=== PATIENT | male | born 1945 | race Caucasian/White ===

== ENCOUNTER 2016-10-29 04:35 | Day surgery (SDC) | payer MEDICARE, OTHER ==
[2016-10-24 21:24] LABS: HEMATOCRIT 39.5 % (40.0-51.0); HEMOGLOBIN 13.2 g/dL (13.6-17.8)
[2016-10-24 21:33] LABS: BUN (BLOOD UREA NITROGEN) 38 MG/DL (6-23); CALCIUM, SERUM 9.5 MG/DL (8.5-10.4); CHLORIDE, SERUM 101 MMOL/L (96-112); CREATININE 1.95 MG/DL (0.70-1.30); GFR AFRICAN AMERICAN 39 ML/MIN (>=60); GFR NON AFRICAN AMERICAN 34 ML/MIN (>=60); GLUCOSE, SERUM 137 MG/DL (60-99); SODIUM, SERUM 141 MMOL/L (135-148)
[2016-10-24 21:35] LABS: CO2 (CARBON DIOXIDE) 27 MMOL/L (24-34)
--- NOTE | ~2016-10-29 | OP ---
Record Of [facility] [address] [place]. [address] NAME: WALDEMAR RODRIGUEZ : 45 STATUS : [facility]#: [id number] AGE: 71 ADM/REG DATE : 10/29/16 MR#: [id number] REPORT SERV DATE: 10/31/16 DICTATED BY: BARBRA BURGESS II DATE: 10/30/16 REPORT STATUS : Draft TRANSCRIBED BY: MODSathya DATE: 10/30/16 DATE OF PROCEDURE: 10/29/2016 PREOPERATIVE DIAGNOSES: 1. Radiculitis, lower extremities. 2. History of multiple thoracic and lumbar surgeries. POSTOPERATIVE DIAGNOSES: 1. Radiculitis, lower extremities. 2. History of multiple thoracic and lumbar surgeries. PROCEDURE: 1. Thoracic laminectomy for placement of spinal column stimulator paddle lead. 2. Placement of battery generator through a separate incision. SURGEON: Barbra Burgess M.D. FLUIDS: 1400 mL of LR. ESTIMATED BLOOD LOSS: 15 mL. DRAINS: None. COMPLICATIONS: None. ANTIBIOTIC: Preoperatively. PREOPERATIVE HISTORY: This is a very friendly 71-year-old gentleman who underwent a very successful trial stimulator with Dr. Wallace. He requested a permanent implant based upon his good results with the trial. We discussed the risks and benefits, and he wished to proceed. DESCRIPTION OF PROCEDURE: After informed consent was obtained, the patient was brought to the operating room at his request and general anesthesia achieved. He was placed in the prone position, and the back was prepped and draped in a sterile fashion. Mr. Rodriguez is a very large individual and positioning took a significant amount of time. Ultimately, we were able to make the incision in the thoracic spine and identified the fascia and subperiosteal exposure was completed at approximately T10-T11. The laminectomy was then performed with the high-speed tobi and the Kerrison rongeurs and the curettes. The lead was then placed over the dorsal columns and fluoroscopy confirmed acceptable placement of the T8 and T9 vertebral bodies, simulating the trial placement. At this point, a battery pocket was developed and the leads attached to the battery and the system was found to be functional. Irrigation was performed at both sites and hemostasis confirmed followed by standard closure. The patient was extubated and transferred to PACU Record Of Operation [facility] [address] [place]. [address] NAME: WALDEMAR RODRIGUEZ : 45 STATUS : [facility]#: [id number] AGE: 71 ADM/REG DATE : 10/29/16 MR#: [id number] REPORT SERV DATE: 10/31/16 DICTATED BY: BARBRA BURGESS II DATE: 10/30/16 REPORT STATUS : Draft TRANSCRIBED BY: MODL DATE: 10/30/16 in stable condition. DEV/MITESH Barbra Burgess II, M.D. / [id number] CC: London Aguiar II, M.D.
[~2016-10-29 04:35] MED LIST: AMB10 PO; ASAB PO; CARDU4 PO; CLARIT10 PO; COLCRYS0.6 MG PO; CORTISPORIN OPH; FISH OIL OTC PO; FLAG500TAB PO; FLONASE NAS; JANUMET1 TA1 PO; K-TABS10 MEQ PO; KLOR-CON M1010 MEQ PO; L40 PO; LANTUS SC; LANTUSCART SC; LEVOTHROID88 MCG PO; LOTENSIN HCT1 TA2 PO; METAMUCIL CAN7 OZ PO; MEVACOR PO; NEUR400 PO; NOVOPEN SC; NUCYNTA50 MG PO; PEP20 PO; PERCOCET 7.5/321 TAB PO; PRILO PO; RESTORIL30 MG PO; SYN88 PO; ULTRAM50 PO; VITAMIN D OTC PO; VITAMIN E OTC PO; Z300 PO; ZANAFLEX 4 MG TA4 MG PO
== END 2016-10-29 13:10 | disposition home or self-care (01) ==
LOC: SDC 04:35
PROVIDERS: Orthopaedic Surgery
PROC: 00HU0MZ Insertion of Neurostimulator Lead into Spinal Canal, Open Approach (ICD-10-PCS; 2016-10-29)
PROC: 0JH70BZ Insertion of Single Array Stimulator Generator into Back Subcutaneous Tissue and Fascia, Open Approach (ICD-10-PCS; principal; 2016-10-29 06:15)
DX: M54.16 Radiculopathy, lumbar region (principal); E11.9 Type 2 diabetes mellitus without complications; M10.9 Gout, unspecified; E03.9 Hypothyroidism, unspecified; M06.9 Rheumatoid arthritis, unspecified; G47.33 Obstructive sleep apnea (adult) (pediatric); I10 Essential (primary) hypertension; Z98.890 Other specified postprocedural states; Z87.442 Personal history of urinary calculi; Z88.1 Allergy status to other antibiotic agents; Z79.899 Other long term (current) drug therapy; Z82.3 Family history of stroke; Z99.89 Dependence on other enabling machines and devices; Z79.82 Long term (current) use of aspirin; Z79.4 Long term (current) use of insulin; Z79.891 Long term (current) use of opiate analgesic
CPT/HCPCS: 36415; 73501-LT; 80048; 82962; 85014; 85018; 88304; 88311; 93005; C1767; C1778; C1787; J0330; J0690; J1170; J2250; J2405; J2710; J3010; J3370